=== PATIENT | male | born 1965 | race African-American/Black ===

== ENCOUNTER 2017-02-28 01:34 | Emergency (ER) | payer MEDICAID ==
[~2017-02-28] VITALS: Ht 170.2 cm; Wt 87.1 kg
[~2017-02-28 01:34] MED LIST: ALBUTEROL SULF8.5 GM INH; AMOXICILLIN500 MG PO; AZITHROMYCIN250 MG ORAL; BENAZEPRIL HCL20 MG PO; DOXYCYCLINE MO100 MG PO; EPZICOM1 TAB PO; IBUPROFEN600 MG PO; ISENTRESS400 MG PO; PHENERGAN/CODE120 ML ORAL; PREDNISONE20 MG ORAL; VICODIN 5-5001 EACH PO
[2017-02-28 01:56] VITALS: BP 101/62
[2017-02-28] MEDS ORDERED: Norco 5mg/325mg tab ONE (02:36)
[2017-02-28] MEDS ORDERED: IBUPROFEN600 MG ORAL (02:45)
[2017-02-28] MEDS ORDERED: Norco 5mg/325mg tab ORAL ONE (02:45)
[2017-02-28] MEDS ORDERED: HYDROCODON-ACE1 EA15 ORAL (02:45)
--- NOTE | 2017-02-28 02:46 | Emergency Room Report ---
History of Present Illness General Chief Complaint: Lower Back Pain or Injury Source: Patient Present Illness HPI Is a 51-year-old male with a history of chronic shoulder pain and back pain. He said is out of his pain medication because his shoulders been acting up because her provider. He denies any fever or chills. He presents with chief complaint of back pain to the left side rated as left leg. Complaining of sciatica. This is a chronic problem. Denies any fever or chills. Denies any trauma. Denies any neurological deficit. Allergies: Coded Allergies: No Known Allergies (Unverified , 10/06/12) Patient History Past Medical History: see triage record, old chart reviewed Past Surgical History: other Pertinent Family History: none Social History: Denies: drug use Immunizations: other Reviewed Nursing Documentation: PMH: Agreed, PSxH: Agreed Nursing Documentation-PMH Hx Hypertension: Yes Hx COPD: Yes Hx Diabetes: Yes Review of Systems Eye: Denies: blurred vision, eye pain ENT: Denies: ear pain, nose congestion, throat swelling Respiratory: Denies: cough, shortness of breath Cardiovascular: Denies: chest pain, palpitations Gastrointestinal: Denies: abdominal pain, diarrhea, nausea, vomiting Musculoskeletal: Reports: back pain, Denies: joint pain Skin: Denies: rash Neurological: Denies: headache, numbness Endocrine: Denies: increased thirst, increased urine Hematologic/Lymphatic: Denies: easy bruising All Other Systems: negative except mentioned in HPI Physical Exam Vital Signs Date Time Temp Pulse Resp B/P Pulse Ox O2 Delivery O2 Flow Rate FiO2 02/28/17 01:40 97.9 119 18 101/62 95 Room Air vitals normal Sp02 EP Interpretation: reviewed, normal General Appearance: well appearing, no apparent distress, alert Head: normocephalic, atraumatic Eyes: bilateral eye EOMI, bilateral eye PERRL ENT: hearing grossly normal, normal pharynx Neck: full range of motion, supple, no meningismus Respiratory: chest non-tender, lungs clear, normal breath sounds Cardiovascular #1: regular rate, rhythm, no murmur Gastrointestinal: normal bowel sounds, non tender, no mass, no organomegaly, no bruit, non-distended Musculoskeletal: back normal, gait/station normal, normal range of motion Psychiatric: mood/affect normal Skin: warm/dry Medical Decision Making Diagnostic Impression: Primary Impression: Low back pain Qualified Codes: M54.42 - Lumbago with sciatica, left side ER Course Patient presents with exacerbation of chronic lower back pain. No evidence of cauda equina syndrome. No evidence of spinal epidural abscess or neoplastic process. We'll discharge home. Last Vital Signs Date Time Temp Pulse Resp B/P Pulse Ox O2 Delivery O2 Flow Rate FiO2 02/28/17 01:56 97.9 85 18 101/62 95 Room Air Status: improved Disposition: HOME, SELF-CARE Condition: Stable Scripts Ibuprofen* (MOTRIN*) 600 Mg Tablet 600 MG ORAL THREE TIMES A DAY, #30 TAB 0 Refills Prov: LOWELL JERNIGAN M.D. 02/28/17 Hydrocodone/Acetaminophen 5-325* (HYDROCODONE/ACETAMINOPHEN 5-325*) 1 Each Tablet 1 TAB ORAL Q6H Y for For Pain, #10 TAB 0 Refills Prov: LOWELL JERNIGAN M.D. 02/28/17 Patient Instructions: Back Pain, Adult Additional Instructions: Followup with your DrLiz as scheduled for refill. Return for increasing pain, fever, chills, or any concern. LOWELL JERNIGAN M.D. Feb 28, 2017 02:46
[2017-02-28 02:49] VITALS: BP 101/62
== END 2017-02-28 02:48 | disposition home or self-care (01) ==
LOC: EMR 02:15
DX: M54.5 Low back pain (principal); G89.29 Other chronic pain; E11.9 Type 2 diabetes mellitus without complications; J44.9 Chronic obstructive pulmonary disease, unspecified
CPT/HCPCS: 99284

== ENCOUNTER 2017-03-18 19:47 | Emergency (ER) | payer MEDICAID ==
[~2017-03-18] VITALS: Ht 170.2 cm; Wt 82.6 kg
[~2017-03-18 19:47] MED LIST changes: +HYDROCODON-ACE1 EA15 ORAL; +IBUPROFEN600 MG ORAL
[2017-03-18 21:03] VITALS: BP 0/0
--- NOTE | 2017-03-19 14:35 | Emergency Room Report ---
History of Present Illness General Chief Complaint: Back Pain-No Injury Source: Patient Present Illness Allergies: Coded Allergies: No Known Allergies (Unverified , 10/06/12) Nursing Documentation-PMH Hx Hypertension: Yes Hx COPD: Yes Hx Diabetes: Yes Physical Exam Vital Signs Date Time Temp Pulse Resp B/P Pulse Ox O2 Delivery O2 Flow Rate FiO2 03/18/17 20:09 98.2 106 18 132/88 96 Room Air Medical Decision Making Diagnostic Impression: Primary Impression: back pain ER Course patient left prior to MD evaluation Last Vital Signs Date Time Temp Pulse Resp B/P Pulse Ox O2 Delivery O2 Flow Rate FiO2 03/18/17 21:03 0/0 03/18/17 20:09 98.2 106 18 96 Room Air Status: unchanged Disposition: LEFT W/OUT BEING SEEN Condition: Unknown Referrals: NOT CHOSEN IPA/,REFERRING (PCP) ERICA DURHAM M.D. March 19, 2017 14:35
== END 2017-03-18 21:03 | disposition home or self-care (01) ==
LOC: EMR 20:19
DX: M54.9 Dorsalgia, unspecified (principal); Z53.21 Procedure and treatment not carried out due to patient leaving prior to being seen by health care provider
CPT/HCPCS: 82962; 99281

== ENCOUNTER 2018-03-04 01:48 | Emergency (ER) | payer MEDICAID ==
[~2018-03-04] VITALS: Ht 170.2 cm; Wt 82.6 kg
[2018-03-04 02:00] VITALS: BP 117/77
[2018-03-04] MEDS ORDERED: ZITHROMAX250 MG ORAL (02:24)
[2018-03-04] MEDS ORDERED: PREDNISONE20 MG ORAL (02:24)
--- NOTE | 2018-03-04 02:25 | Emergency Room Report ---
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 Also has a history of HIV with undetectable viral load and CD4 count of 453. He presents with chief complaint of coughing congestion and sinus congestion for last 2 weeks. Now phlegm is productive greenish sputum. Worse with inspiration. Better with breathing treatment. Denies any fever chills. Denies any nausea vomiting. No chest pain. Allergies: Coded Allergies: No Known Allergies (Unverified , 10/06/12) Patient History Past Medical History: see triage record, old chart reviewed, COPD, HIV Past Surgical History: other Pertinent Family History: none Social History: Denies: smoking Immunizations: other Reviewed Nursing Documentation: PMH: Agreed; PSxH: Agreed Nursing Documentation-PMH Hx Hypertension: Yes Hx COPD: Yes Hx Diabetes: Yes Review of Systems Eye: Denies: eye pain, blurred vision ENT: Denies: ear pain, nose congestion, throat swelling Respiratory: Reports: cough, shortness of breath, wheezing Cardiovascular: Denies: chest pain, palpitations Gastrointestinal: Denies: abdominal pain, diarrhea, nausea, vomiting Musculoskeletal: Denies: back pain, joint pain Skin: Denies: rash Neurological: Denies: headache, numbness Endocrine: Denies: increased thirst, increased urine Hematologic/Lymphatic: Denies: easy bruising All Other Systems: negative except mentioned in HPI Physical Exam Vital Signs Date Time Temp Pulse Resp B/P (MAP) Pulse Ox O2 Delivery O2 Flow Rate FiO2 03/04/18 01:53 98.2 104 18 131/86 95 Room Air 98.2 03/04/18 02:00 97 vitals normal Sp02 EP Interpretation: reviewed, normal General Appearance: well appearing, no apparent distress, alert Head: normocephalic, atraumatic Eyes: bilateral eye PERRL, bilateral eye EOMI ENT: hearing grossly normal, normal pharynx Neck: full range of motion, supple, no meningismus Respiratory: chest non-tender, lungs clear, normal breath sounds, other - coughing with inspiration Cardiovascular #1: regular rate, rhythm, no murmur Gastrointestinal: normal bowel sounds, non tender, no mass, no organomegaly, no bruit, non-distended Musculoskeletal: back normal, gait/station normal, normal range of motion Psychiatric: mood/affect normal Skin: warm/dry Medical Decision Making Diagnostic Impression: Primary Impression: COPD with exacerbation Additional Impression: URI, acute ER Course Patient with URI that is worsening. Because of his lung disease with COPD and clubbing's of his nail, we'll put on antibiotics. No evidence of any sepsis, pneumonia, COPD to name a few. We'll discharge home. Last Vital Signs Date Time Temp Pulse Resp B/P (MAP) Pulse Ox O2 Delivery O2 Flow Rate FiO2 03/04/18 02:00 97.9 76 16 117/77 97 Room Air 97.9 03/04/18 02:00 97 Status: unchanged Disposition: HOME, SELF-CARE Condition: Stable Scripts Azithromycin* (ZITHROMAX*) 250 Mg Tablet 250 MG ORAL DAILY, #6 TAB 0 Refills Take two tables once daily for 1 day, then one tablet once daily for 4 days. Prov: LOWELL JERNIGAN M.D. 03/04/18 Prednisone* (PREDNISONE*) 20 Mg Tablet 60 MG ORAL DAILY, #15 TAB Prov: LOWELL JERNIGAN M.D. 03/04/18 Patient Instructions: Upper Respiratory Infection, Adult Additional Instructions: Follow-up with your doctor in 7 days. Return if symptom worsen. LOWELL JERNIGAN M.D. March 04, 2018 02:25
[2018-03-04 02:49] VITALS: BP 120/78
[2018-03-04 02:50] VITALS: BP 120/78
== END 2018-03-04 02:45 | disposition home or self-care (01) ==
LOC: EMR 02:03
DX: J44.1 Chronic obstructive pulmonary disease with (acute) exacerbation (principal); J06.9 Acute upper respiratory infection, unspecified; I10 Essential (primary) hypertension; E11.9 Type 2 diabetes mellitus without complications
CPT/HCPCS: 99284

== ENCOUNTER 2019-05-28 14:08 | Emergency (ER) | payer MEDICAID ==
[~2019-05-28] VITALS: Ht 170.2 cm; Wt 78.0 kg
[~2019-05-28 14:08] MED LIST changes: +ZITHROMAX250 MG ORAL
[2019-05-28 14:21] VITALS: BP 136/91
--- NOTE | 2019-05-28 14:38 | NUR ---
ED Nurse Note: Patient presents to ER due to sore throat, green nasal discharge, cough; reports no fever, chills. Regular, unlabored breathing with clear breath sounds noted. No facial grimacing or guarding noted.
[2019-05-28] MEDS ORDERED: AUGMENTIN XR 11 EACH ORAL (14:45)
[2019-05-28] MEDS ORDERED: PROMETHAZINE-D118 ML ORAL (14:45)
[2019-05-28] MEDS ORDERED: SUDAFED 12-HOU120 MG PO (14:45)
--- NOTE | 2019-05-28 14:54 | NUR ---
ED Nurse Note: Patient is being discharged from medical care. Patient awake, alert, oriented x 4. D/C instructio and prescriptions given to patient. All questions were answered. Patient ambulated out with steady gait.
--- NOTE | 2019-05-28 18:35 | Emergency Room Report ---
History of Present Illness General Chief Complaint: Sore Throat Source: Patient Present Illness HPI Patient is a 53-year-old male presenting for 7 days of nasal congestion, facial pressure, cough, and chills. He states that he had subjective fever earlier which has resolved. Pain is described as a 5 out of 10 dull ache the face. Worse with cough. He has not taken any medications for this yet. He denies any known sick contacts. He does admit to being HIV positive but states T-cell count above 400. He is actively being treated for this. Allergies: Coded Allergies: No Known Allergies (Unverified , 10/06/12) Patient History Past Medical History: see triage record Pertinent Family History: none Reviewed Nursing Documentation: PMH: Agreed; PSxH: Agreed Nursing Documentation-PMH Past Medical History: No History, Except For Hx Hypertension: Yes Hx COPD: Yes Hx Diabetes: Yes Review of Systems All Other Systems: negative except mentioned in HPI Physical Exam Vital Signs Date Time Temp Pulse Resp B/P (MAP) Pulse Ox O2 Delivery O2 Flow Rate FiO2 05/28/19 14:21 98.1 16 136/91 96 Room Air 05/28/19 14:21 88 Sp02 EP Interpretation: reviewed, normal General Appearance: no apparent distress, alert, GCS 15, non-toxic Head: normocephalic, atraumatic ENT: hearing grossly normal, normal pharynx, no angioedema, normal voice, uvula midline, nasal congestion Neck: full range of motion, supple/symm/no masses Respiratory: chest non-tender, lungs clear, normal breath sounds, no wheezing, speaking full sentences Cardiovascular #1: regular rate, rhythm, no edema Gastrointestinal: normal bowel sounds, non tender, soft, non-distended, no guarding, no rebound Musculoskeletal: back normal, gait/station normal, normal range of motion, non- tender Neurologic: alert, oriented x3, responsive, motor strength/tone normal, sensory intact, speech normal Psychiatric: judgement/insight normal, memory normal, mood/affect normal, no suicidal/homicidal ideation Skin: no rash Lymphatic: no adenopathy Medical Decision Making PA Attestation Dr. Vora is my supervising physician. Patient management was discussed with my supervising physician Diagnostic Impression: Primary Impression: Sinus infection Qualified Codes: J01.00 - Acute maxillary sinusitis, unspecified ER Course Patient is a 53-year-old male presenting for 7 days of nasal congestion, facial pressure, cough, and chills Differential diagnoses considered but not limited to: Sinusitis, pharyngitis, cluster headache, rhinitis, among others Physical exam: Afebrile. No apparent distress HEENT exam unremarkable except for nasal congestion and tenderness to palpation over the left maxillary sinus The patient will be discharged home with prescription for augmentin, cough medication, Sudafed he will follow up with primary doctor as discussed ER precautions are given Last Vital Signs Date Time Temp Pulse Resp B/P (MAP) Pulse Ox O2 Delivery O2 Flow Rate FiO2 05/28/19 14:21 98.1 88 16 136/91 (106) 96 Room Air Status: improved Disposition: HOME, SELF-CARE Condition: Improved Scripts Pseudoephedrine Hcl (SUDAFED 12-HOUR) 120 Mg Tablet.er 120 MG PO Q12HR, #20 TAB Prov: ADELA MUÑOZ.A. 05/28/19 Amoxicillin/Potassium Clav Xr 1,000-62.5 Tab (AUGMENTIN XR 1,000-62.5 TAB) 1 Each Tab.er.12h 2 TAB ORAL EVERY 12 HOURS, #40 TAB Prov: ADELA MUÑOZ.A. 05/28/19 D-Methorphan Hb/Prometh Hcl* (PROMETHAZINE-DM SYRUP*) 118 Ml Syrup 5 ML ORAL Q6H PRN for For Cough, #118 ML 0 Refills Prov: ADELA MUÑOZ.A. 05/28/19 Referrals: NON PHYSICIAN (PCP) Patient Instructions: Sinusitis, Adult Additional Instructions: I discussed my findings with the patient. All questions and concerns have been answered. Treatment and medication compliance have been addressed. I advised the patient that they need to follow up with PMD in 3-5 days. Return to ED if pain remains or worsens, cough worsens or remains, you notice blood in your sputum, you notice wheezing, you experience a fever, or if needed for any reason. Patient verbalized understanding of discharge instructions. ADELA MUÑOZ May 28, 2019 18:35
== END 2019-05-28 15:00 | disposition home or self-care (01) ==
LOC: EMR 15:00
DX: J01.00 Acute maxillary sinusitis, unspecified (principal); B20 Human immunodeficiency virus [HIV] disease; I10 Essential (primary) hypertension; J44.9 Chronic obstructive pulmonary disease, unspecified; E11.9 Type 2 diabetes mellitus without complications
CPT/HCPCS: 99282